=== PATIENT | male | born 1955 | race Caucasian/White ===

== ENCOUNTER 2019-04-15 08:44 | Day surgery (SDC) | payer OTHER ==
--- NOTE | 2019-04-14 09:00 | RAD REPORT ---
EXAM DESCRIPTION: RAD - Chest Pa And Lat (2 Views) - 04/14/2019 8:47 am CLINICAL HISTORY: preop Chest pain. COMPARISON: No comparisons FINDINGS: The lungs are clear. The heart is upper limit of normal in size. No displaced fractures.
[2019-04-14 09:34] LABS: Absolute Lymphocytes (CBC) 1.2 K/uL (0.7-4.9); Basophils % 0.2 % (0-1.3); Hematocrit 44.9 % (39.6-49.0); Lymphocytes % 27.2 % (15.3-44.8); MPV 8.4 fL (7.6-11.3); RBC Red Blood Cell Count 4.95 M/uL (4.33-5.43)
[2019-04-14 09:42] LABS: Potassium 4.2 mmol/L (3.5-5.1)
--- NOTE | 2019-04-14 09:43 | EKG ---
Test Date: 2019-04-14 Test Time: 08:23:25 Photographer'S Assistant: ABY MEASUREMENT RESULTS: Intervals: Rate: 57 NM: 184 QRSD: 92 QT: 410 QTc: 399 [place]: P: 4 NM: 184 QRS: 39 T: 20 INTERPRETIVE STATEMENTS: Sinus bradycardia Otherwise normal ECG No previous ECG available for comparison Electronically Signed On 04-14-19 09:42:49 HAND ALMOND BLANCHER by Gerber Herzog
[2019-04-15] MEDS ORDERED: CEFAZOLIN/SWI 1gm 1 GM/10 ML SYR ONE (09:08)
[2019-04-15] MEDS ORDERED: Ringers Lactate 1,000 ML IV ONE (09:08)
[2019-04-15] MEDS ORDERED: MIDAZOLAM HCL 2 MG/2 ML INJ ONE (10:43)
[2019-04-15] MEDS ORDERED: LIDOCAINE 1% MPF 5 ML VIAL ONE (10:43)
[2019-04-15] MEDS ORDERED: ROCURONIUM 50 MG/5 ML VIAL IV ONE (10:43)
[2019-04-15] MEDS ORDERED: propofoL 200 MG/20 ML VIAL IV ONE (10:43)
[2019-04-15] MEDS ORDERED: FENTANYL CITR 100 MCG/2 ML ONE ×2 (10:43→12:02)
[2019-04-15] MEDS ORDERED: GLYCOPYRROLATE 0.2 MG/ML SYR ONE ×3 (11:43→12:04)
[2019-04-15] MEDS ORDERED: KETOROLAC 30 MG/ML INJ ONE (11:49)
[2019-04-15] MEDS ORDERED: ONDANSETRON 4 MG/2 ML VIAL ONE ×2 (11:50→12:27)
[2019-04-15] MEDS ORDERED: NEOSTIGMINE 1 MG/ML -5 ML ONE (11:50)
[2019-04-15] MEDS ORDERED: Phenylephrine HCl 10 MG/ML 1 ML VIAL ONE (11:55)
[2019-04-15] MEDS ORDERED: NS 0.9% VIAL 10 ML ONE (11:55)
[2019-04-15] MEDS: HYDROMORPHONE HCL 1 MG/ML INJ ONE ×4 (12:29→12:47)
[2019-04-15] MEDS: HYDROCODONE/APAP 7.5/325 MG TAB ONE (13:25)
[2019-04-15] MEDS: ONDANSETRON 4 MG/2 ML VIAL ONE (14:20)
[2019-04-15] MEDS ORDERED: PROMETHAZINE INJ 25 MG/ML AMP ONE (14:42)
[2019-04-15 15:17] VITALS: BP 117/75; TEMP 97.4; O2SAT 97
--- NOTE | 2019-04-16 00:18 | OP ---
Date of Procedure: 04/15/2019 Surgeon: Elbert Thomas MD Preoperative Diagnosis: Umbilical hernia. Postoperative Diagnosis: Umbilical hernia, adhesions. Procedure Performed: Laparoscopic repair of umbilical hernia and lysis of adhesions. Estimated Blood Loss: Minimal. Specimen: Hernia sac and contents. Findings: As above. Anesthesia: General. Complications: None. Disposition: Patient tolerated the procedure in stable condition, taken to Recovery in good general condition. Procedure In Detail: Patient was brought to the OR, placed in supine position. General anesthesia w as begun. Patient was prepped and draped in the usual sterile fashion. Marcaine 0.5% was infiltrate d locally. A 15-blade was used to make a 1 cm left upper quadrant incision. Subcutaneous tissue div ided. Fascia was identified and divided. A #1 Vicryl stay suture was placed. Peritoneal cavity was entered with sharp and blunt dissection. 12 mm trocar was placed into the peritoneal cavity under d irect vision. Pneumoperitoneum was established and then 5 mm trocar was placed in the left lower landry drant. Laparoscopy revealed extensive adhesions in the right upper quadrant and epigastric region, o mental adhesion from previous surgery. These were taken down with ligature. Considerable time was u tilized to take the adhesions down. The umbilical hernia approximately 2.5 cm in diameter may be a l ittle smaller was seen. A 3 cm incision over the hernia was made, subcutaneous tissue was divided. Hernia sac and contents were excised, sent to Pathology as specimen. Then, a medium Ventralex mesh p laced and secured with #1 PDS [id number] sutures to close the defect primarily and then pneumope ritoneum reestablished. The mesh secured to the peritoneal surface with tacker and then there was no evidence of bleeding or bowel injury appreciated. Complete coverage of the hernia defect was accomp lished. Subsequently all trocars were removed under direct vision. Stay sutures were tied to each o ther to reapproximate the fascial defect. Subcutaneous wounds were irrigated. Bleeding controlled w ith cautery. A 3-0 chromic was used to approximate the subcutaneous tissue, staple was used to close the skin. Sterile dressing was applied. The patient was awakened and taken to the Recovery in good general condition. Discharge Note: The patient will go to Day Surgery, then home when stable. Disposition: Home. Condition: Stable. Discharge Instructions: Resume home medications and diet. Activity as tolerated. No heavy lifting. Remove outer dressing in 2 days. Shower. Keep wound clean and dry. Follow up in my office in a anshul nixonk. Call for appointment. Tylenol No. 3 one tablet p.o. q.4 p.r.n. pain and incentive spirometry. An abdominal binder as ordered. /MODL Voice ID: [id number] Report ID: [id number]
== END 2019-04-15 15:10 | disposition home or self-care (01) ==
LOC: OR 08:44
PROVIDERS: ATTEND Surgery
PROC: 0DNU4ZZ Release Omentum, Percutaneous Endoscopic Approach (ICD-10-PCS; 2019-04-15)
PROC: 0WUF4JZ Supplement Abdominal Wall with Synthetic Substitute, Percutaneous Endoscopic Approach (ICD-10-PCS; principal; 2019-04-15 11:00)
DX: K42.9 Umbilical hernia without obstruction or gangrene (principal); K66.0 Peritoneal adhesions (postprocedural) (postinfection); Z88.2 Allergy status to sulfonamides
CPT/HCPCS: 93005; 85025; 80048; 36415; 88302; 71046; 49652; 49329; J2704; J2550; J2370; J2250; J3010 ×2; J1170 ×2; J2710; J0690; J7120; J2405 ×3

== ENCOUNTER 2019-04-15 20:08 | Emergency (ER) | payer OTHER ==
--- NOTE | 2019-04-15 22:13 | ER ---
Nurse's Notes [facility] Name: Leroy Yanez III Age: 63 yrs Sex: Male : 1955 Arrival Date: 04/15/2019 Time: 20:13 Bed 26 Private MD: Diagnosis: Retention of urine, unspecified Presentation: 04/15 20:26 Presenting complaint: Patient states: "Today I had umbilical hernia repair surgery and tr5 i have not been able to urinate since. I just noticed that i am bleeding through he dressing on my stomach. Transition of care: patient was not received from another setting of care. Onset of symptoms was April 15, 2019. Risk Assessment: Do you want to hurt yourself or someone else? Patient reports no desire to harm self or others. Initial Sepsis Screen: Does the patient meet any 2 criteria? No. Patient's initial sepsis screen is negative. Does the patient have a suspected source of infection? No. Patient's initial sepsis screen is negative. Care prior to arrival: None. 20:26 Method Of Arrival: Ambulatory tr5 20:26 Acuity: TRAVIS 3 tr5 Historical: - Allergies: 21:04 No Known Allergies; tr5 - Home Meds: 21:04 acetaminophen-codeine 120 mg-12 mg /5 mL (5 mL) Oral soln [Active]; Zofran (as tr5 hydrochloride) 4 mg oral tab [Active]; - PMHx: 21:04 None; tr5 - PSHx: 21:04 Hernia repair; Cholecystectomy; tr5 - Immunization history:: Adult Immunizations up to date. - Social history:: Smoking status: Patient/guardian denies using tobacco. - Ebola Screening: : No symptoms or risks identified at this time. Screenin:10 Abuse screen: Denies threats or abuse. Nutritional screening: No deficits noted. tr5 Tuberculosis screening: No symptoms or risk factors identified. Fall Risk None identified. Assessment: 21:10 General: Appears uncomfortable, Behavior is calm, cooperative, appropriate for age. tr5 Pain: Complains of pain in abdomen at incision site. Neuro: Level of Consciousness is awake, alert, obeys commands, Oriented to person, place, time, Customer Order Clerk are equal bilaterally Moves all extremities. Cardiovascular: Heart tones present Capillary refill < 3 seconds. Respiratory: Airway is patent Respiratory effort is even, unlabored, Respiratory pattern is regular, symmetrical. GI: No signs and/or symptoms were reported involving the gastrointestinal system. : Reports inability to void, since his surgery this morning. EENT: No signs and/or symptoms were reported regarding the EENT system. Derm: No signs and/or symptoms reported regarding the dermatologic system. Musculoskeletal: No signs and/or symptoms reported regarding the musculoskeletal system. Vital Signs: 20:40 BP 147 / 95; Pulse 72; Resp 16; Temp 98.2(O); Pulse Ox 98% on R/A; Weight 89.36 kg; tr5 Height 5 ft. 10 in. (177.80 cm); 20:40 Body Mass Index 28.27 (89.36 kg, 177.80 cm) tr5 ED Course: 20:13 Patient arrived in ED. cl3 20:21 Bandar Dawkins MD is Attending Physician. tw4 20:26 Greg Walsh RN is Primary Nurse. tr5 20:28 Triage completed. tr5 20:40 Arm band placed on Patient placed. tr5 21:27 Dressings: non-adherent dressing x 1 umbilical area Tegaderm X 3; umbilical area woven jp3 gauze. Wound care: to surgical incision located on umbilical area was cleaned with Hibiclens, Patient tolerated well. 21:30 Bed in low position. Call light in reach. Side rails up X 1. Adult w/ patient. Verbal jp3 reassurance given. Pulse ox on. NIBP on. 22:33 No provider procedures requiring assistance completed. Patient did not have IV access tr5 during this emergency room visit. Administered Medications: No medications were administered Output: 22:00 Urine: 150ml (Voided); Total: 150ml. tr5 Outcome: 22:12 Discharge ordered by . tw4 22:33 Discharged to home ambulatory, with family. tr5 22:33 Condition: stable 22:33 Discharge instructions given to patient, family, Instructed on discharge instructions, follow up and referral plans. Demonstrated understanding of instructions, medications. 22:33 Patient left the ED. tr5 Signatures: Bandar Dawkins MD MD tw4 [place] jp3 Greg Walsh RN RN tr5 Mayra Ceja cl3
--- NOTE | 2019-04-15 22:13 | EDPHYS ---
Physician Documentation [facility] Name: Leroy Yanez III Age: 63 yrs Sex: Male : 1955 Arrival Date: 04/15/2019 Time: 20:13 Bed 26 Private MD: ED Physician Bandar Dawkins HPI: 04/16 03:00 This 63 yrs old Male presents to ER via Ambulatory with complaints of Urinary tw4 Problem, Incision Bleeding. 03:00 The patient presents with urinary symptoms, retention. Onset: The symptoms/episode tw4 began/occurred today. Modifying factors: The symptoms are alleviated by nothing, the symptoms are aggravated by nothing. Associated signs and symptoms: The patient has no apparent associated signs or symptoms. Severity of symptoms: At their worst the symptoms were moderate, in the emergency department the symptoms are unchanged. The patient has not experienced similar symptoms in the past. Historical: - Allergies: 04/15 21:04 No Known Allergies; tr5 - Home Meds: 21:04 acetaminophen-codeine 120 mg-12 mg /5 mL (5 mL) Oral soln [Active]; Zofran (as tr5 hydrochloride) 4 mg oral tab [Active]; - PMHx: 21:04 None; tr5 - PSHx: 21:04 Hernia repair; Cholecystectomy; tr5 - Immunization history:: Adult Immunizations up to date. - Social history:: Smoking status: Patient/guardian denies using tobacco. - Ebola Screening: : No symptoms or risks identified at this time. ROS: 04/16 03:00 Constitutional: Negative for fever, chills, and weight loss, Eyes: Negative for injury, tw4 pain, redness, and discharge, Cardiovascular: Negative for chest pain, palpitations, and edema, Respiratory: Negative for shortness of breath, cough, wheezing, and pleuritic chest pain, Abdomen/GI: Negative for abdominal pain, nausea, vomiting, diarrhea, and constipation, Back: Negative for injury and pain, Skin: Negative for injury, rash, and discoloration, Neuro: Negative for headache, weakness, numbness, tingling, and seizure. : Positive for difficulty urinating, Negative for injury or acute deformity, hematuria, pelvic pain, flank pain, bladder incontinence, foul smelling urine, penile discharge, penile pain, testicular pain Exam: 03:00 Constitutional: This is a well developed, well nourished patient who is awake, alert, tw4 and in no acute distress. Eyes: Pupils equal round and reactive to light, extra-ocular motions intact. Lids and lashes normal. Conjunctiva and sclera are non-icteric and not injected. Cornea within normal limits. Periorbital areas with no swelling, redness, or edema. Chest/axilla: Normal chest wall appearance and motion. Nontender with no deformity. No lesions are appreciated. Cardiovascular: Regular rate and rhythm with a normal S1 and S2. No gallops, murmurs, or rubs. Normal PMI, no JVD. No pulse deficits. Respiratory: Lungs have equal breath sounds bilaterally, clear to auscultation and percussion. No rales, rhonchi or wheezes noted. No increased work of breathing, no retractions or nasal flaring. Back: No spinal tenderness. No costovertebral tenderness. Full range of motion. Male : Normal genitalia with no discharge or lesions. Skin: Warm, dry with normal turgor. Normal color with no rashes, no lesions, and no evidence of cellulitis. Neuro: Awake and alert, GCS 15, oriented to person, place, time, and situation. Cranial nerves II-XII grossly intact. Motor strength 5/5 in all extremities. Sensory grossly intact. Cerebellar exam normal. Normal gait. 03:00 Abdomen/GI: Inspection: scar(s), are noted in the umbilical area and suprapubic area. 03:00 Abdomen/GI: Inspection: no signs of dehiscence, henry in place no discharge. tw4 Vital Signs: 04/15 20:40 BP 147 / 95; Pulse 72; Resp 16; Temp 98.2(O); Pulse Ox 98% on R/A; Weight 89.36 kg; tr5 Height 5 ft. 10 in. (177.80 cm); 20:40 Body Mass Index 28.27 (89.36 kg, 177.80 cm) tr5 MDM: 20:43 Patient medically screened. tw4 04/16 03:00 Differential diagnosis: nonspecific abdominal pain, appendicitis. Data reviewed: vital tw4 signs, nurses notes. Counseling: I had a detailed discussion with the patient and/or guardian regarding: the historical points, exam findings, and any diagnostic results supporting the discharge/admit diagnosis. Special discussion: I discussed with the patient/guardian in detail that at this point there is no indication for admission to the hospital. It is understood, however, that if the symptoms persist or worsen the patient needs to return immediately for re-evaluation. ED course: Bladder scan revealed 450 cc in bladder pt was able to void in the ED. Pt has no other complaints, wound was dressed with a sterile dressing and pt instructed to followup with surgeon. Administered Medications: No medications were administered Disposition: 04/15/19 22:12 Discharged to Home. Impression: Retention of urine, unspecified. - Condition is Stable. - Discharge Instructions: Acute Urinary Retention, Male. - Medication Reconciliation Form, Thank You Letter, Antibiotic Education, Prescription Opioid Use form. - Follow up: Private Physician; When: Upon discharge from the Emergency Department; Reason: Recheck today's complaints, Continuance of care. - Problem is new. - Symptoms have improved. Signatures: Bandar Dawkins MD MD tw4 Greg Walsh RN RN tr5 Corrections: (The following items were deleted from the chart) 04/15 22:33 22:12 04/15/2019 22:12 Discharged to Home. Impression: Retention of urine, unspecified. tr5 Condition is Stable. Forms are Medication Reconciliation Form, Thank You Letter, Antibiotic Education, Prescription Opioid Use. Follow up: Private Physician; When: Upon discharge from the Emergency Department; Reason: Recheck today's complaints, Continuance of care. Problem is new. Symptoms have improved. tw4
[2019-04-15 22:39] VITALS: BP 147/95; TEMP 98.2; O2SAT 98
== END 2019-04-15 22:33 | disposition home or self-care (01) ==
LOC: ER 20:08
DX: R33.9 Retention of urine, unspecified (principal)
CPT/HCPCS: 99283

== ENCOUNTER 2024-08-17 10:28 | Emergency (ER) | payer OTHER ==
--- OUTSIDE RECORDS SUMMARY | 2024-08-17 10:32 | XMS REPORT | Continuity of Care Document ---
Author Name Unknown Address [address] [facility] [place] [address] Organization [facility] [place] Address [address] [place] [address] Care Team Providers Care Band Salvager Name Role Phone Morales Arriaga Primary Care Physician [phone] SHARRON MACDONALDHOra Attending Clinician Manish Macdonald MD, Sharron K.HOra Attending Clinician [phone] Sharron Macdonald MD K.H. Attending Clinician [phone] Doctor Unassigned, [place] Attending Clinician U mono Vazquez MD, Luz Attending Clinician [phone] LUZ VAZQUEZ Attending Clinician Unavailable Meeta Stevenson Attending Clinician [phone] Unknown, Attending Attending Clinician Unavailab gama UNKNOWN, ATTENDING Attending Clinician UnavailVictoriano Krishnamurthy MD Attending Clinician [phone] Yesi Jhaveri MD Attending Clinician [phone] Radiology Attending Clinician Unavailable RADIOLOGY Attending Clinician Unavailable SHARRON MACDONALD Admitting Clinician Yesi Saeed MD Admitting Clinician [phone] Payers Payer Name Policy Type Policy Number Effective Date Expirati on Date Source [facility] [id number] 2019 00:00:00 Problems Condition Name Condition Details Condition Category Status Onset Date Resolution Date Last Treatment Date Treating Clinician Comments Source 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) Disease Active 08-20 00:00: 00 [facility] Atypical chest pain Atypical chest pain Disease Active 08-20 00:00: 00 [facility] 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) Disease Active 08-20 00:00: 00 [facility] Palpitatio ns Palpitatio ns Disease Active 08-03 00:00: 00 [facility] Allergies, Adverse Reactions, Alerts Allergy Name Allergy Type Status Severity Reaction(s) Onset Date Inactive Date Treating Clinician Comments Source Lisinopr il Propensi ty to adverse reaction s Active Cough 11-16 00:00: 00 [facility] LISINOPR IL DRUG INGREDI Active COUGH 11-16 00:00: 00 [facility] Sulfa (Sulfona mide Antibiot ics) Propensi ty to adverse reaction s Active Hives 4 00:00: 00 [facility] Sulfa (Sulfona mide Antibiot ics) Propensi ty to adverse reaction s Active Hives 08-02 00:00: 00 [facility] SULFA (SULFONA MIDE ANTIBIOT ICS) Drug Class Active Hives 4 00:00: 00 [facility] Social History Social Habit Start Date Stop Date Quantity Comments Source History SDOH Alcohol Frequency [facility] History SDOH Alcohol Std Drinks [facility] History SDOH Alcohol Binge [facility] History of tobacco use Current smoker [facility] Exposure to SARS-CoV-2 (event) 2022-05-10 00:00:00 2022-05-20 08:44:00 Not sure [facility] History of Social function 2022-05-20 00:00:00 2022-05-20 00:00:00 [facility] Alcohol intake 2021-05-21 00:00:00 2021-05-21 00:00:00 Current drinker of alcohol (finding) [facility] Alcoholic beverage intake 2021-05-21 00:00:00 2021-05-21 00:00:00 Current drinker of alcohol (finding) [facility] Alcohol Comment 2021-01-10 00:00:00 2021-01-10 00:00:00 social [facility] Tobacco use and exposure 2020-08-03 00:00:00 2020-08-03 00:00:00 Former smokeless tobacco user [facility] Sex assigned at 1955 00:00:00 1955 00:00:00 [facility] Smoking Status Start Date Stop Date Source Ex-smoker 2020-08-03 00:00:00 2020-08-03 00:00:00 [facility] Medications Ordered Medication Name Filled Medication Name Start Date Stop Date Current Medication? Ordering Clinician Indication Dosage Frequency Signature (SIG) Comments Components Source flecainide 50 mg tablet 05-20 00:00: 00 Yes [id number] 50mg Take 1 tablet by mouth in the morning and 1 tablet in the evening. [facility] losartan 25 mg tablet 05-20 00:00: 00 Yes [id number] Losartan 50 mg in AM and 25 mg PM [facility] metoprolol succinate XL 25 mg 24 hr tablet 05-20 00:00: 00 Yes [id number] 12.5mg Take 0.5 tablets by mouth in the morning and 0.5 tablets in the evening. [facility] metoprolol succinate XL 25 mg 24 hr tablet 1-17 00:00: 00 05-20 00:00 :00 No [id number] TAKE ONE-HALF (1/2) TABLET IN THE MORNING AND ONE-HALF (1/2) TABLET IN THE EVENING [facility] losartan 25 mg tablet 2-16 00:00: 00 05-20 00:00 :00 No [id number] Losartan 50 mg in AM and 25 mg PM [facility] metoprolol succinate XL 25 mg 24 hr tablet 05-20 00:00: 00 Yes [id number] 12.5mg Take 0.5 tablets by mouth in the morning and 0.5 tablets in the evening. [facility] flecainide 50 mg tablet 05-20 00:00: 00 05-20 00:00 :00 No [id number] 50mg Take 1 tablet by mouth in the morning and 1 tablet in the evening. [facility] losartan 25 mg tablet 05-20 00:00: 00 06-13 00:00 :00 No [id number] Losartan 50 mg in AM and 25 mg PM [facility] flecainide 50 mg tablet 05-20 00:00: 00 05-20 00:00 :00 No [id number] 50mg Take 1 tablet by mouth in the morning and 1 tablet in the evening. [facility] metoprolol succinate XL 25 mg 24 hr tablet 05-20 00:00: 00 05-20 00:00 :00 No [id number] 12.5mg Take 0.5 tablets by mouth in the morning and 0.5 tablets in the evening. [facility] losartan 25 mg tablet 05-20 00:00: 00 05-20 00:00 :00 No [id number] 25mg Take 1 tablet by mouth in the morning and 1 tablet in the evening. [facility] FLECAINIDE 50 mg tablet 04-29 00:00: 00 05-20 00:00 :00 No [id number] TAKE 1 TABLET TWICE A DAY [facility] METOPROLOL SUCCINATE XL 25 mg 24 hr tablet 2021-04 2-13 00:00: 00 05-20 00:00 :00 No [id number] TAKE ONE-HALF (1/2) TABLET TWICE A DAY [facility] metoprolol succinate XL 25 mg 24 hr tablet 05-21 00:00: 00 Yes [id number] 12.5mg Take 0.5 tablets by mouth 2 (two) times daily. [facility] losartan 25 mg tablet 05-21 00:00: 00 05-20 00:00 :00 No [id number] 25mg Take 1 tablet by mouth daily. [facility] flecainide 50 mg tablet 05-21 00:00: 00 08-20 04:59 :00 No [id number] 50mg Take 1 tablet by mouth 2 (two) times daily for 90 days. [facility] losartan 25 mg tablet 01-23 00:00: 00 05-21 00:00 :00 No [id number] 25mg Take 1 tablet by mouth daily. [facility] flecainide 50 mg tablet 01-23 00:00: 00 05-21 00:00 :00 No [id number] 50mg Take 1 tablet by mouth 2 (two) times daily. [facility] metoprolol succinate XL 25 mg 24 hr tablet 01-23 00:00: 00 05-21 00:00 :00 No [id number] 12.5mg Take 0.5 tablets by mouth 2 (two) times daily. [facility] Vital Signs Vital Name Observation Time Observation Value Comments S ource Systolic blood pressure 2024-05-20 14:53:00 127 mm[Hg] [facility] Diastolic blood pressure 2024-05-20 14:53:00 71 mm[Hg] [facility] Heart rate 2024-05-20 14:53:00 61 /min [facility] Body temperature 2024-05-20 14:53:00 36.33 Marium [facility] Respiratory rate 2024-05-20 14:53:00 17 /min [facility] Body height 2024-05-20 14:53:00 177.8 cm per pt [facility] Body weight 2024-05-20 14:53:00 93.169 kg [facility] BMI 2024-05-20 14:53:00 29.47 kg/m2 [facility] Oxygen saturation in Arterial blood by Pulse oximetry 2024-05-20 14:53:00 98 /min [facility] Systolic blood pressure 2023-05-20 14:42:00 123 mm[Hg] [facility] Diastolic blood pressure 2023-05-20 14:42:00 73 mm[Hg] [facility] Heart rate 2023-05-20 14:42:00 54 /min Unive [facility] Respiratory rate 2023-05-20 14:42:00 18 /min [facility] Body height 2023-05-20 14:42:00 177.8 cm [facility] Body weight 2023-05-20 14:42:00 91.173 kg [facility] BMI 2023-05-20 14:42:00 28.84 kg/m2 [facility] Oxygen saturation in Arterial blood by Pulse oximetry 2023-05-20 14:42:00 96 /min [facility] Systolic blood pressure 2022-05-20 15:08:00 141 mm[Hg] [facility] Diastolic blood pressure 2022-05-20 15:08:00 81 mm[Hg] [facility] Heart rate 2022-05-20 15:08:00 57 /min Unive [facility] Body height 2022-05-20 15:08:00 177.8 cm [facility] Body weight 2022-05-20 15:08:00 92.398 kg [facility] BMI 2022-05-20 15:08:00 29.23 kg/m2 [facility] Oxygen saturation in Arterial blood by Pulse oximetry 2022-05-20 15:08:00 98 /min [facility] Body temperature 2022-05-20 15:04:00 36.94 Marium [facility] Systolic blood pressure 2021-05-21 15:23:00 123 mm[Hg] [facility] Diastolic blood pressure 2021-05-21 15:23:00 76 mm[Hg] [facility] Heart rate 2021-05-21 15:23:00 56 /min Unive [facility] Respiratory rate 2021-05-21 15:23:00 22 /min [facility] Body height 2021-05-21 15:23:00 177.8 cm [facility] Body weight 2021-05-21 15:23:00 88.86 kg [facility] BMI 2021-05-21 15:23:00 28.11 kg/m2 [facility] Oxygen saturation in Arterial blood by Pulse oximetry 2021-05-21 15:23:00 99 /min [facility] Procedures Procedure Date / Time Performed Performing Clinician Source EXTERNAL PROVIDER - [facility] CARDIOLOGY 2023-06-13 06:01:00 Doctor Unassigned, [place] [facility] PATIENT QUESTIONNAIRE 2023-05-20 06:01:00 Doctor Unassigned, [place] [facility] CONSENT/REFUSAL FOR DIAGNOSIS AND TREATMENT 2023-05-13 14:09:00 Doctor Unassigned, [place] [facility] EXTERNAL PROVIDER - [facility] CARDIOLOGY 2022-06-10 06:01:00 Doctor Unassigned, [place] [facility] HB ECG ROUTINE & RHYTHM STRIP 2022-05-20 15:01:14 Sharron Macdonald [facility] PATIENT QUESTIONNAIRE 2022-05-20 06:01:00 Doctor Unassigned, [place] [facility] CONSENT/REFUSAL FOR DIAGNOSIS AND TREATMENT 2022-05-06 14:44:34 Doctor Unassigned, [place] [facility] EXTERNAL PROVIDER - [facility] REFERRAL 2022-04-03 06:01:00 Doctor Unassigned, [place] [facility] Encounters Start Date/Time End Date/Time Encounter Type Admission Type Attending [facility] Care Facility Care Department Encounter ID Source 2021-02-25 11:27:23 Emergency [facility] [id number] [facility] 2024-06-11 00:00:00 2024-06-15 00:04:33 Patient Secure Msg Sharron Macdonald [facility] 1.2.840.114 350.1.13.10 4.2.7.2.686 [id number] [facility] 2024-05-20 09:00:00 2024-05-20 09:18:11 Outpatient R SHARRON MACDONALD [facility] [id number] [facility] 2024-05-20 09:00:00 2024-05-20 09:18:11 Office Visit Sharron Macdonald [facility] 1.2.840.114 350.1.13.10 4.2.7.2.686 [id number] [facility] 2023-08-08 00:00:00 2023-08-08 00:00:00 Telephone Sharron Macdonald [facility] 1.2.840.114 350.1.13.10 4.2.7.2.686 [id number] [facility] 2023-06-13 00:00:00 2023-06-13 00:00:00 Orders Only Doctor Unassigned, [place] [facility] 1.2.840.114 350.1.13.10 4.2.7.2.686 [id number] [facility] 2023-06-12 00:00:00 2023-06-12 00:00:00 Telephone Sharron Macdonald [facility] 1.2.840.114 350.1.13.10 4.2.7.2.686 [id number] [facility] 2023-06-12 00:00:00 2023-06-12 00:00:00 Telephone Sharron Macdonald [facility] 1.2.840.114 350.1.13.10 4.2.7.2.686 [id number] [facility] 2023-06-02 00:00:00 2023-06-02 00:00:00 Telephone Sharron Macdonald [facility] 1.2.840.114 350.1.13.10 4.2.7.2.686 [id number] [facility] 2023-05-20 09:00:00 2023-05-20 09:41:02 Outpatient R SHARRON MACDONALD [facility] [id number] [facility] 2023-05-20 09:00:00 2023-05-20 09:41:02 Office Visit Sharron Macdonald [facility] 1.2.840.114 350.1.13.10 4.2.7.2.686 [id number] [facility] 2023-05-20 00:00:00 2023-05-20 00:00:00 Orders Only Doctor Unassigned, [place] [facility] 1.2840.114 350.1.13.10 4.2.7.2.686 [id number] [facility] 2023-05-13 08:26:27 2023-05-13 23:59:00 Outpatient R SHARRON MACDONALD [facility] [id number] [facility] 2023-05-13 08:26:27 2023-05-13 23:59:00 Hospital Encounter Sharron Macdonald [facility] 1.2840.114 350.1.13.10 4.2.7.2.686 [id number] [facility] 2023-05-13 00:00:00 2023-05-13 00:00:00 Orders Only Doctor Unassigned, [place] [facility] 1.2840.114 350.1.13.10 4.2.7.2.686 [id number] [facility] 2023-05-09 00:00:00 2023-05-09 00:00:00 Telephone Sharron Macdonald [facility] 1.2.840.114 350.1.13.10 4.2.7.2.686 [id number] [facility] 2023-04-28 00:00:00 2023-04-28 00:00:00 Refill Sharron Macdonald [facility] 1.2.840.114 350.1.13.10 4.2.7.2.686 [id number] [facility] 2022-06-10 00:00:00 2022-06-10 00:00:00 Orders Only Doctor Unassigned, [place] [facility] 1.2840.114 350.1.13.10 4.2.7.2.686 [id number] [facility] 2022-06-07 00:00:00 2022-06-07 00:00:00 Patient Secure Msg Sharron Macdonald [facility] 1.2840.114 350.1.13.10 4.2.7.2.686 [id number] [facility] 2022-05-20 09:00:00 2022-05-20 09:34:40 Outpatient R SHARRON MACDONALD [facility] [id number] [facility] 2022-05-20 09:00:00 2022-05-20 09:34:40 Office Visit Sharron Macdonald [facility] 1.2840.114 350.1.13.10 4.2.7.2.686 [id number] [facility] 2022-05-20 00:00:00 2022-05-20 00:00:00 Orders Only Doctor Unassigned, [place] [facility] 1.2840.114 350.1.13.10 4.2.7.2.686 [id number] [facility] 2022-05-14 00:00:00 2022-05-14 00:00:00 Telephone Sharron Macdonald [facility] 1.2.840.114 350.1.13.10 4.2.7.2.686 [id number] [facility] 2022-05-09 00:00:00 2022-05-09 00:00:00 Telephone Sharron Macdonald [facility] 1.2.840.114 350.1.13.10 4.2.7.2.686 [id number] [facility] 2022-05-07 08:00:00 2022-05-07 08:00:00 Outpatient R SHARRON MACDONALD [facility] [id number] [facility] 2022-05-06 08:45:18 2022-05-06 09:31:00 Outpatient R SHARRON MACDONALD [facility] [id number] [facility] 2022-05-06 00:00:00 2022-05-06 00:00:00 Orders Only Doctor Unassigned, [place] [facility] 1.2.840.114 350.1.13.10 4.2.7.2.686 [id number] [facility] 2022-04-29 00:00:00 2022-04-29 00:00:00 Refill Sharron Macdonald [facility] 1.2.840.114 350.1.13.10 4.2.7.2.686 [id number] [facility] 2022-04-09 00:00:00 2022-04-09 00:00:00 Refill Sharron Macdonald [facility] 1.2.840.114 350.1.13.10 4.2.7.2.686 [id number] [facility] 2022-04-03 00:00:00 2022-04-03 00:00:00 Orders Only Doctor Unassigned, [place] [facility] 1.0.114 350.1.13.10 4.2.7.2.686 [id number] [facility] 2021-05-21 09:00:00 2021-05-21 09:38:37 [id number] 2021-05-21 09:00:00 2021-05-21 09:38:37 Office Visit Pablo Macdonaldroma VarinderOra [facility] 1.840.114 350.1.13.10 4.2.7.2.686 [id number] [facility] 2021-05-21 09:00:00 2021-05-21 09:38:37 [facility] [id number] [facility] 2021-05-21 00:00:00 2021-05-21 00:00:00 Patient Secure Msg Sharron MacdonaldOra [facility] 1.840.114 350.1.13.10 4.2.7.2.686 [id number] [facility] 2021-01-23 08:50:42 2021-01-23 09:25:10 Office Visit Luz Vazquez [facility] 1.840.114 350.1.13.10 4.2.7.2.686 [id number] [facility] 2021-01-23 09:00:00 2021-01-23 09:00:00 Outpatient R TAYLOR LUZ [facility] [id number] [facility] 2021-01-15 00:00:00 2021-01-15 00:00:00 Patient Secure Msg Doctor Unassigned, [place] [facility] 1.20.114 350.1.13.10 4.2.7.2.686 [id number] [facility] 2021-01-10 09:14:55 2021-01-10 23:59:00 Hospital Encounter Meeta Quezada [facility] 1.114 350.1.13.10 4.2.7.2.686 [id number] [facility] 2021-01-10 08:52:56 2021-01-10 09:29:14 Urgent Care Meeta Quezada Unknown, Attending [facility] 1.114 350.1.13.10 4.2.7.2.686 [id number] [facility] 2021-01-10 09:00:00 2021-01-10 09:00:00 Outpatient R UNKNOWN, ATTENDING [facility] [id number] [facility] 2020-11-16 08:50:29 2020-11-16 09:20:14 Office Visit Sharron Macdonald [facility] 1.114 350.1.13.10 4.2.7.2.686 [id number] [facility] 2020-11-16 09:00:00 2020-11-16 09:00:00 Outpatient R SHARRON MACDONALD [facility] [id number] [facility] 2020-11-16 00:00:00 2020-11-16 00:00:00 Orders Only Doctor Unassigned, [place] [facility] 1.114 350.1.13.10 4.2.7.2.686 [id number] [facility] 2020-10-17 13:26:02 2020-10-17 15:08:15 Office Visit Luz Vazquez [facility] 1.114 350.1.13.10 4.2.7.2.686 [id number] [facility] 2020-10-17 13:40:00 2020-10-17 13:40:00 Outpatient R LUZ VAZQUEZ [facility] [id number] [facility] 2020-09-21 00:00:00 2020-09-21 00:00:00 Patient Secure Msg Taylor [facility] 1.2.840.114 350.1.13.10 4.2.7.2.686 [id number] [facility] 2020-09-20 00:00:00 2020-09-20 00:00:00 Refill Taylor [facility] nal Building 1.2.840.114 350.1.13.10 4.2.7.2.686 [id number] [facility] 2020-09-20 00:00:00 2020-09-20 00:00:00 Telephone Taylor [facility] nal Building 1.2.840.114 350.1.13.10 4.2.7.2.686 [id number] [facility] 2020-09-19 08:25:37 2020-09-19 09:41:36 Office Visit Luz Vazquez [facility] nal Building 1.2.840.114 350.1.13.10 4.2.7.2.686 [id number] [facility] 2020-09-19 08:40:00 2020-09-19 08:40:00 Outpatient R LUZ VAZQUEZ [facility] [id number] [facility] 2020-09-12 09:41:25 2020-09-12 10:48:01 Office Visit Sharron Macdonald [facility] 1.2.840.114 350.1.13.10 4.2.7.2.686 [id number] [facility] 2020-09-12 10:00:00 2020-09-12 10:00:00 Outpatient R SHARRON MACDONALD [facility] [id number] [facility] 2020-09-12 00:00:00 2020-09-12 00:00:00 Orders Only Doctor Unassigned, [place] [facility] 1.2.840.114 350.1.13.10 4.2.7.2.686 [id number] [facility] 2020-09-08 00:00:00 2020-09-08 00:00:00 Patient Secure Msg [facility] 1.2.840.114 350.1.13.10 4.2.7.2.686 [id number] [facility] 2020-08-30 00:00:00 2020-08-30 00:00:00 Telephone Sharron Macdonald [facility] 1.2.840.114 350.1.13.10 4.2.7.2.686 [id number] [facility] 2020-08-29 08:35:36 2020-08-29 10:52:00 Hospital Encounter Sharron Macdonald [facility] 1.2.840.114 350.1.13.10 4.2.7.2.686 [id number] [facility] 2020-08-29 08:35:25 2020-08-29 10:52:00 Hospital Encounter Sharron Macdonald [facility] 1.2.840.114 350.1.13.10 4.2.7.2.686 [id number] [facility] 2020-08-29 08:35:14 2020-08-29 10:52:00 Hospital Encounter Pablo Macdonaldroma VarinderOra [facility] 1.2.840.114 350.1.13.10 4.2.7.2.686 [id number] [facility] 2020-08-29 08:35:04 2020-08-29 10:52:00 Hospital Encounter Pablo Macdonaldroma Hemal [facility] 1.2.840.114 350.1.13.10 4.2.7.2.686 [id number] [facility] 2020-08-29 00:00:00 2020-08-29 00:00:00 Outpatient SHARRON MACDONALD [facility] [id number] [facility] 2020-08-21 09:45:29 2020-08-21 11:02:01 Office Visit Sharron Macdonald AlexiaOraFacundoOra [facility] 1.2.840.114 350.1.13.10 4.2.7.2.686 [id number] [facility] 2020-08-21 10:00:00 2020-08-21 10:00:00 Outpatient R SHARRON MACDONALD [facility] [id number] [facility] 2020-08-14 00:00:00 2020-08-14 00:00:00 Orders Only Doctor Unassigned, [place] [facility] 1.2.840.114 350.1.13.10 4.2.7.2.686 [id number] [facility] 2020-08-02 23:20:00 2020-08-03 18:35:00 Emergency Victoriano Douglas Adnan [facility] 1.2.840.114 350.1.13.10 4.2.7.2.686 [id number] [facility] 2019-12-15 12:34:40 2019-12-15 23:59:00 Hospital Encounter Radiology [facility] 1.2.840.114 350.1.13.10 4.2.7.2.686 [id number] [facility] 2019-12-15 00:00:00 2019-12-15 00:00:00 Outpatient R RADIOLOGY [facility] [id number] [facility] 2019-12-15 00:00:00 2019-12-15 00:00:00 Orders Only Doctor Unassigned, [place] [facility] 1..840.114 350.1.13.10 4.2.7.2.686 [id number] [facility] Notes Date/Time Note Provider Source 2024-06-15 00:03:59 Labs reviewed from PCPs office from the cardiac standpoint. Acceptable limits noted. Continue with the current cardiac medications without any further changes. Prefer keeping the LDL less than 100. Recommended lifestyle modification. LDL mildly elevated 118 noted. Follow-up as planned next year. Labs dated 06/11/2024 reviewed from the PCPs office shows free T3 levels normal, free T4 levels normal, TSH levels normal at 3.95, hemoglobin stable 15.1, platelet count stable at 234, creatinine stable at 1.26, potassium stable at 4.5, LFTs within normal limits A1c stable at 5.2, direct LDL acceptable at 118, HDL at 70, triglyceride 101 [facility] 2023-08-11 09:42:13 Patient notified of results. He verbalized understanding of results/recommendations via teach back. No further questions or concerns at this time. Michelle Rossi RN [facility] 2023-08-11 09:09:18 Labs dated 07/29/2023 done by the PCPs office reviewed from the cardiac standpoint. Creatinine stable at 1.2, potassium stable at 5.0, NT-proBNP stable at 109 Blood pressure log reviewed. Blood pressure/heart rate within acceptable limits. Continue the current cardiac medications without any further changes. Follow-up as scheduled. [facility] 2023-08-08 14:39:22 Patient brought up labs and bp log to be reviewed by Dr. Macdonald. Dr. Macdonald comes in on Friday placed on folder for his review. Thank you. Rosaura Hendrix MA [facility] 2023-06-13 15:34:11 Patient notified of results. He verbalized understanding of results/recommendations via teach back. He states he already discussed with his PCP as well. He prefers to have his labs done at PCP office. He will contact them and ask them to place orders or see if they will accept orders from Dr. Macdonald. No further questions or concerns at this time. D INCOME ANALYST Michelle Rossi RN [facility] 2023-06-13 15:32:57 Addended by: MICHELLE ROSSI RN on: 06/13/2023 03:32 PM Modules accepted: Orders [facility] 2023-06-13 15:25:23 Patient notified. He verbalized understanding. He has no questions. He is requesting 90 day supply of the losartan. [facility] 2023-06-13 12:41:45 Addended by: SHARRON MACDONALD on: 06/13/2023 12:41 PM Modules accepted: Orders [facility] 2023-06-13 12:39:42 Labs from the PCPs office dated 06/04/2023 reviewed. Hemoglobin stable at 15.1, platelet count at 231,, LDL mildly elevated 106, HDL at 69, triglycerides 95, TSH normal at 4.4, A1c at 5.2, creatinine at 1.26, potassium at 4.5, LFTs within normal limits. Continue with the current cardiac medications without any further changes. Repeat blood pressure log in 1 month time. Since losartan dose was recently increased, recommended repeat labs to be done BMP/NT BMP in 1 months time. Orders placed. [facility] 2023-06-13 12:38:07 Images from the original note were not included. Blood pressure log reviewed. Acceptable on the whole. Recommended to continue losartan 50 mg in the a.m./25 mg in the p.m. Repeat blood pressure log in 1 month. Goal blood pressure on average less than 130/80. [facility] 2023-06-12 14:52:29 BP log received and placed in Dr Macdonald's folder to be reviewed. E Lu MA [facility] 2023-06-12 13:52:01 Lab work results received via fax from Dr. Sagrario Jaramillo and placed in Dr Macdonald's folder to be reviewed. E Lu MA [facility] 2023-06-02 11:29:57 Images from the original note were not included. Called patient for results patient verbalized understanding with no further questions Sharron Macdonald MD P Cardiology Nurse Holter monitor shows PVC stable at 1%. Continue the current cardiac medications as we had recently discussed in the office visit. No new changes. Follow-up as planned next year or if there is any new symptoms. Please ask him to send us a blood pressure log in around 2 weeks time. [facility] 2023-05-09 13:40:34 Contacted patient and he is going to keep his appointment. E Lainez [facility] 2023-05-09 09:11:31 Leona Yanez is a 67 year old male Patient is scheduled for 05/13/23 and asking if there is anything later on in the day. Please call at [phone] E Lu [facility]
--- NOTE | 2024-08-17 12:10 | RAD REPORT ---
EXAMINATION: XR Foot Right 3 View CLINICAL INDICATION: Male, 69 years old. [facility] MAIN PAIN Bed Name: 17 TECHNIQUE: 3 view radiographs of the right foot were obtained. COMPARISON: No prior exam. FINDINGS: No evidence of fracture or dislocation. Normal alignment. Up to moderate arthritic changes at the first metatarsophalangeal articulation. No significant hallux valgus deformity. Soft tissues are unremarkable. No soft tissue swelling. No significant degenerative changes. IMPRESSION: No acute osseous abnormalities. Degenerative changes as above.
--- NOTE | 2024-08-17 12:37 | RAD REPORT ---
EXAMINATION: US RIGHT LOWER EXTREMITY VENOUS DOPPLER CLINICAL INDICATION: [facility] MAIN . PAIN Bed Name: 19 Y TECHNIQUE: Complete bilateral duplex sonography of the RIGHT lower extremity veins was performed. The examination included compression for vein patency, color Doppler imaging and flow augmentation in response to distal compression of the distal external iliac, common femoral, femoral, popliteal, tibi al, and great and small saphenous veins. COMPARISON: No prior exam. FINDINGS: Duplex sonography testing of the veins of the RIGHT lower extremity was performed. Color flow imaging shows all veins to be compressible with [id number] color filling. Pulsatile and phasic flow is present within all lower extremity deep and superficial veins examined. IMPRESSION: No evidence of deep venous thrombosis.
[2024-08-17 12:38] LABS: Anion Gap 9.4 mEq/L (5.0-15.0); Potassium 4.4 mEq/L (3.5-5.1); Uric Acid 5.8 mg/dL (3.5-7.2)
[2024-08-17 12:43] LABS: Absolute Eosinophils 0.1 K/uL (0-0.5); Absolute Lymphocytes (CBC) 0.8 K/uL (0.7-4.9); Absolute Monocytes 0.6 K/uL (0.1-1.3); Absolute Neutrophil 3.1 K/uL (1.8-8.0); Basophils % 0.2 % (0-1.3); Eosinophils % 1.4 % (0-4.4); Hematocrit 39.1 % (39.6-49.0); Hemoglobin 14.7 g/dL (13.6-17.9); Lymphocytes % 17.8 % (15.3-44.8); MCH 35.8 pg (27.0-35.0); MCHC 37.7 g/dL (32.0-36.0); MCV 94.8 fL (80-100); MPV 7.9 fL (7.6-11.3); Monocytes % 12.7 % (3.3-12.3); Neutrophils % 67.9 % (41.7-73.7); Nucleated Red Blood Cells % 0.1 % (0-0); Platelets 208 thou/uL (152-406); RBC Red Blood Cell Count 4.12 M/uL (4.33-5.43); Red Cell Distribution Width 13.3 % (12.1-15.2)
[2024-08-17] MEDS ORDERED: IBUPROFEN 200 MG TAB PO ONE (13:11)
[2024-08-17] MEDS ORDERED: COLCHICINE 0.6 MG TAB ONE (13:11)
--- NOTE | 2024-08-17 13:57 | EDPHYS ---
Physician Documentation [facility] Name: Leroy Yanez III Age: 69 yrs Sex: Male : 1955 Arrival Date: 08/17/2024 Time: 10:28 Bed 17 Private MD: ED Physician Dipesh Oliver HPI: 08/17 11:12 This 69 yrs old Male presents to ER via Ambulatory with complaints of maybe blood ms3 clot-sent by 11:12 69-year-old male with past medical history of atrial fibrillation [facility] for right foot pain radiates up into his posterior calf. Patient states the pain began on Friday and is currently rated a 5 out of 10. Patient denies chest pain, dizziness, weakness, fevers, chills.. Historical: - Allergies: 10:44 Sulfa (Sulfonamide Antibiotics); iw - Home Meds: 10:44 metoprolol tartrate Oral daily [Active]; flecainide oral daily [Active]; losartan oral iw [Active]; - PMHx: 10:44 Atrial fibrillation; iw - Immunization history:: Adult Immunizations up to date. - Infectious Disease History:: Denies. - Social history:: Smoking status: Patient denies any tobacco usage or history of. ROS: 11:12 Constitutional: Negative for fever, and chills. Cardiovascular: Negative for chest ms3 pain, and palpitations. Respiratory: Negative for shortness of breath, cough, wheezing, and pleuritic chest pain, Abdomen/GI: Negative for abdominal pain, nausea, vomiting, diarrhea, and constipation, 11:12 MS/extremity: Positive for pain, swelling, of the Right foot, right calf, Exam: 11:12 Constitutional: This is a well developed, well nourished patient who is awake, alert, ms3 and in no acute distress. Cardiovascular: Regular rate and rhythm with a normal S1 and S2. No gallops, murmurs, or rubs. Normal PMI, no JVD. No pulse deficits. Respiratory: Lungs have equal breath sounds bilaterally, clear to auscultation and percussion. No rales, rhonchi or wheezes noted. No increased work of breathing, no retractions or nasal flaring. Abdomen/GI: Soft, non-tender, with normal bowel sounds. No distension or tympany. No guarding or rebound. No evidence of tenderness throughout. 11:12 Musculoskeletal/extremity: Posterior right calf with mild tenderness to palpation. 11:12 Skin: Mild erythema over right medial MTP joint. Vital Signs: 10:42 BP 154 / 91; Pulse 59; Resp 16; Temp 98.1; Pulse Ox 99% on R/A; Weight 88.9 kg; Height iw 5 ft. 10 in. ; Pain 8/10; 12:33 BP 120 / 69; Pulse 58; Resp 18; Pulse Ox 99% on R/A; ld1 10:42 Body Mass Index 28.12 (88.90 kg, 177.8 cm) iw 10:42 Pain Scale: Adult iw MDM: 11:08 Medical Screening Exam initiated ms3 11:12 Differential diagnosis: Gout versus cellulitis versus DVT. ms3 15:11 Data reviewed: vital signs, nurses notes, lab test result(s), radiologic studies, and ms3 as a result, I will discharge patient. I considered the following discharge prescriptions or medication management in the emergency department Medications were administered in the Emergency Department. See MAR. Counseling: I had a detailed discussion with the patient and/or guardian regarding the historical points, exam findings, and any diagnostic results supporting the discharge/admit diagnosis, lab results, radiology results, the need for outpatient follow up, to return to the emergency department if symptoms worsen or persist or if there are any questions or concerns that arise at home. Special discussion: I discussed with the patient/guardian in detail that at this point there is no indication for admission to the hospital. It is understood, however, that if the symptoms persist or worsen the patient needs to return immediately for re-evaluation. ED course: Discussed labs and imaging with patient. Patient states he experienced relief after ibuprofen and colchicine. Patient to follow-up with primary care physician 2 to 3 days. Patient understands and agrees with plan. All questions were answered. Return precautions discussed include worsening symptoms, or any other concerns.. 08/17 11:09 Order name: Uric Acid; Complete Time: 12:42 ms3 08/17 11:09 Order name: CBC with Diff; Complete Time: 12:50 ms3 08/17 11:09 Order name: BMP; Complete Time: 12:42 ms3 08/17 11:07 Order name: Foot Right 3 View XRAY; Complete Time: 12:26 ms3 08/17 11:07 Order name: Extremity Venous Uni Ltd US; Complete Time: 12:42 ms3 Administered Medications: 13:14 Drug: Colchicine-Probenecid PO 2 tabs PO once Route: PO; ld1 14:14 Follow up: Response: No adverse reaction ld1 13:14 Drug: Ibuprofen PO 600 mg PO once Route: PO; ld1 14:14 Follow up: Response: No adverse reaction ld1 Disposition Summary: 08/17/24 13:56 Discharge Ordered Notes: Location: Home ms3 Condition: Stable ms3 Diagnosis - Gout, unspecified ms3 - Pain in right toe(s) ms3 Followup: ms3 - With: Private Physician - When: 2 - 3 days - Reason: Recheck today's complaints Discharge Instructions: - Discharge Summary Sheet ms3 - Gout ms3 - Low-Purine Eating Plan ms3 Forms: - Medication Reconciliation Form ms3 - Antibiotic Education ms3 - Prescription Opioid Use ms3 - Patient Portal Instructions ms3 - Leadership Thank You Letter ms3 Prescriptions: - colchicine 0.6 mg Oral tablet - take 1 tablet ORAL route daily; 30 tablet; Refills: 0, Product Selection ms3 Permitted Signatures: Dispatcher [employer] EDSaige Gamble RN SILVIA iw Dipesh Oliver DO DO ms3 Kelli Oliver RN RN ld1 Corrections: (The following items were deleted from the chart) 11:09 11:09 URIC ACID+C.LAB.BRZ ordered. EDMS EDMS 11:09 11:09 CBC+H.LAB.BRZ ordered. EDMS EDMS 11:09 11:09 BASIC METABOLIC PANEL+C.LAB.BRZ ordered. EDMS EDMS
--- NOTE | 2024-08-17 13:57 | ER ---
Nurse's Notes [facility] Name: Leroy Yanez III Age: 69 yrs Sex: Male : 1955 Arrival Date: 08/17/2024 Time: 10:28 Bed 17 Private MD: Diagnosis: Gout, unspecified;Pain in right toe(s) Presentation: 08/17 10:42 Chief complaint: Patient states: right foot pain Friday morning, pain radiates up to iw calf. Coronavirus screen: At this time, the client does not indicate any symptoms associated with coronavirus-19. Ebola Screen: No symptoms or risks identified at this time. Initial Sepsis Screen: Does the patient meet any 2 criteria? No. Patient's initial sepsis screen is negative. Does the patient have a suspected source of infection? No. Patient's initial sepsis screen is negative. Risk Assessment: Do you want to hurt yourself or someone else? Patient reports no desire to harm self or others. 10:42 Method Of Arrival: Ambulatory iw 10:42 Acuity: TRAVIS 3 iw 10:46 Onset of symptoms was August 15, 2024. iw Historical: - Allergies: 10:44 Sulfa (Sulfonamide Antibiotics); iw - Home Meds: 10:44 metoprolol tartrate Oral daily [Active]; flecainide oral daily [Active]; losartan oral iw [Active]; - PMHx: 10:44 Atrial fibrillation; iw - Immunization history:: Adult Immunizations up to date. - Infectious Disease History:: Denies. - Social history:: Smoking status: Patient denies any tobacco usage or history of. Screenin:34 [facility] ED Fall Risk Assessment (Adult) History of falling in the last 3 months, ld1 including since admission No falls in past 3 months (0 pts) Confusion or Disorientation No (0 pts) Intoxicated or Sedated No (0 pts) Impaired Gait No (0 pts) Mobility Assist Device Used No (0 pt) Altered Elimination No (0 pt) Score/Fall Risk Level 0 - 2 = Low Risk Oriented to surroundings, Hourly rounding (assess needs \T\ fall precautionary measures) done. Abuse screen: Denies threats or abuse. Denies injuries from another. Nutritional screening: No deficits noted. Tuberculosis screening: No symptoms or risk factors identified. Assessment: 12:33 General: Appears in no apparent distress. comfortable, Behavior is calm, cooperative, ld1 appropriate for age. Pain: Complains of pain in right foot and right leg Pain does not radiate. Pain currently is 6 out of 10 on a pain scale. Quality of pain is described as throbbing, Pain began suddenly, Is continuous. Neuro: Level of Consciousness is awake, alert, obeys commands, Oriented to person, place, time, situation. Cardiovascular: Capillary refill < 3 seconds Patient's skin is warm and dry. Rhythm is sinus rhythm. Respiratory: Airway is patent Respiratory effort is even, unlabored. GI: Abdomen is round non-distended. : No signs and/or symptoms were reported regarding the genitourinary system. EENT: No signs and/or symptoms were reported regarding the EENT system. Derm: No signs and/or symptoms reported regarding the dermatologic system. Musculoskeletal: No signs and/or symptoms reported regarding the musculoskeletal system. Vital Signs: 10:42 BP 154 / 91; Pulse 59; Resp 16; Temp 98.1; Pulse Ox 99% on R/A; Weight 88.9 kg; Height iw 5 ft. 10 in. ; Pain 8/10; 12:33 BP 120 / 69; Pulse 58; Resp 18; Pulse Ox 99% on R/A; ld1 10:42 Body Mass Index 28.12 (88.90 kg, 177.8 cm) iw 10:42 Pain Scale: Adult iw ED Course: 10:32 Patient arrived in ED. al6 10:33 Dipesh Oliver DO is Attending Physician. ms3 10:43 Triage completed. iw 10:43 Arm band placed on. iw 10:52 Kelli Oliver, RN is Primary Nurse. ld1 11:27 Extremity Venous Uni Ltd US In Process Unspecified. EDMS 12:00 Foot Right 3 View XRAY In Process Unspecified. EDMS 12:34 Patient has correct armband on for positive identification. Placed in gown. Bed in low ld1 position. Call light in reach. Side rails up X2. Pulse ox on. NIBP on. Door closed. Noise minimized. Warm blanket given. 12:34 No provider procedures requiring assistance completed. Inserted saline lock: 20 gauge ld1 in left antecubital area, using aseptic technique. Blood collected. Flushed with 10 mL NS. 14:14 IV discontinued, intact, bleeding controlled, No redness/swelling at site. ld1 Administered Medications: 13:14 Drug: Colchicine-Probenecid PO 2 tabs PO once Route: PO; ld1 14:14 Follow up: Response: No adverse reaction ld1 13:14 Drug: Ibuprofen PO 600 mg PO once Route: PO; ld1 14:14 Follow up: Response: No adverse reaction ld1 Medication: 12:34 VIS not applicable for this client. ld1 Outcome: 13:56 Discharge ordered by . ms3 14:14 Discharged to home ambulatory, ld1 14:14 Condition: stable 14:14 Discharge instructions given to patient, Instructed on discharge instructions, follow up and referral plans. medication usage, Demonstrated understanding of instructions, follow-up care, medications, Prescriptions given X 1, 14:16 Patient left the ED. ld1 Signatures: Dispatcher [employer] EDMS Saige Jacome RN RN iw Dipesh Oliver DO DO ms3 Kelli Oliver RN RN ld1 Lakshmi Ang6 Corrections: (The following items were deleted from the chart) 10:48 10:42 BP 154 / 91; Pulse 59bpm; Resp 16bpm; Pulse Ox 99% RA; iw iw 13:21 10:42 BP 154 / 91; Pulse 59bpm; Resp 16bpm; Pulse Ox 99% RA; 88.9 kg; Height 5 ft. 10 iw in.; BMI: 28.1; Pain 8/10, Adult; iw
[2024-08-17 15:11] VITALS: TEMP 98.1; O2SAT 99
[2024-08-17 15:12] VITALS: BP 120/69
== END 2024-08-17 14:16 | disposition home or self-care (01) ==
LOC: ER 10:28
DX: M10.9 Gout, unspecified (principal)
CPT/HCPCS: 36415; 80048; 84550; 85025; 93971; 99284